=== PATIENT | female | born 1955 | race Two or more races ===

== ENCOUNTER 2019-01-21 13:33 | Day surgery (SDC) | payer OTHER ==
[~2019-01-21] VITALS: Ht 165.1 cm; Wt 82.4 kg
[~2019-01-21 13:33] MED LIST: ACET-2158 GTB; ALBU8.5H5 INH; AZIT250T PO; LEVO75TA5 PO; METFORMIN; PRED20TA PO; SIMV40TA3 PO; ZINC220C5 PO
[2019-01-21 14:25] VITALS: Ht 165.1 cm; Wt 82.4 kg
[2019-01-21 16:22] VITALS: BP 125/71; PULSE 77; RESP 18
[2019-01-21] MEDS ORDERED: LIDOCAINE 100 MG SYRINGE ONE (16:35)
[2019-01-21] MEDS ORDERED: PROPOFOL 40 ML ONE (16:35)
[2019-01-21] MEDS ORDERED: FENTAnyl 50 MCG/ML VIAL ONE (16:35)
[2019-01-21 17:04] VITALS: BP 119/71; PULSE 74; RESP 16
[2019-01-21 17:19] VITALS: BP 139/71; PULSE 78; RESP 20
== END 2019-01-21 18:06 | disposition home or self-care (01) ==
LOC: GIL 13:33
PROVIDERS: ATTEND Internal Medicine Gastroenterology
DX: K31.9 Disease of stomach and duodenum, unspecified (principal); E11.9 Type 2 diabetes mellitus without complications; E03.9 Hypothyroidism, unspecified
CPT/HCPCS: 43239; 82962; 88305; 88312; J2001; J3010; Z7610